=== PATIENT | female | born 1935 | race Caucasian/White ===

== ENCOUNTER 2017-11-28 15:46 | Observation (INO) | payer MEDICARE ==
[~2017-11-28] VITALS: Ht 165.1 cm; Wt 71.2 kg
[2017-11-28] MEDS ORDERED: ENOXAPARIN INJ 80 MG/0.8 ML SYR SC STA (16:34)
[2017-11-28] MEDS ORDERED: ASPIRIN 81 MG CHEW TAB PO ONE ×2 (16:45→19:15)
--- NOTE | 2017-11-28 18:01 | Diagnostic Imaging Report ---
EXAMINATION: CHEST SINGLE (PORTABLE) INDICATION: \S\Chest pain, look for CHF, enlarge Mediastinum COMPARISON: None FINDINGS: AP view TUBES and LINES: None. LUNGS: Lungs are well inflated. There is perihilar interstitial opacities, consistent with interstitial edema. PLEURA: No pleural effusion or pneumothorax. HEART AND MEDIASTINUM: The cardiomediastinal silhouette is unremarkable. There are atherosclerotic calcifications within the aorta. BONES AND SOFT TISSUES: No acute osseous lesion. Soft tissues are unremarkable. UPPER ABDOMEN: No free air under the diaphragm. IMPRESSION: Early interstitial edema. Signed by: Dr. Diogo Isbell M.D. on 11/28/2017 5:58 PM
[2017-11-28 18:27] LABS: BASOPHILS # (AUTO) 0.1 (0.0-0.1); BASOPHILS % 0.9 % (0.0-1.0); EOSINOPHILS # (AUTO) 0.1 (0.0-0.4); EOSINOPHILS % 1.3 % (0.0-6.0); HEMATOCRIT 41.6 % (34.2-44.1); HEMOGLOBIN 13.5 g/dL (12.0-16.0); LYMPHOCYTES # (AUTO) 2.8 (1.0-3.2); MEAN CORPUSCULAR HEMOGLOBIN 30.3 pg (28-32); MEAN CORPUSCULAR HGB CONC 32.5 g/dL (31-35); MEAN CORPUSCULAR VOLUME 93.3 fL (81-99); MONOCYTES # (AUTO) 0.8 (0.2-0.8); MONOCYTES % 7.6 % (4.4-11.3); NEUTROPHILS # (AUTO) 6.7 (2.1-6.9); NEUTROPHILS % 63.7 % (38.7-80.0); PLATELET COUNT 257 x10e3/uL (140-360); RED BLOOD COUNT 4.46 x10e6/uL (3.6-5.1); RED CELL DISTRIBUTION WIDTH 13.5 % (11.7-14.4)
[2017-11-28 18:53] LABS: ALANINE AMINOTRANSFERASE 15 IU/L (0-55); ALBUMIN 3.8 g/dL (3.5-5.0); ALBUMIN/GLOBULIN RATIO 1.1 (0.8-2.0); ALKALINE PHOSPHATASE 68 IU/L (40-150); ANION GAP 17.3 mmol/L (8-16); BLOOD UREA NITROGEN 15 mg/dL (7-26); BUN/CREATININE RATIO 19 (6-25); CARBON DIOXIDE 24 mmol/L (22-29); CHLORIDE 105 mmol/L (98-107); CREATINE KINASE 102 IU/L (29-168); CREATININE, SERUM 0.78 mg/dL (0.57-1.11); EST GLOMERULAR FILTRATION RATE > 60 ML/MIN (60-); GLUCOSE 69 mg/dL (74-118); POTASSIUM 4.3 mmol/L (3.5-5.1); SODIUM 142 mmol/L (136-145)
[2017-11-28] MEDS: METOPROLOL TARTRATE INJ 1 MG/ML VIAL IV SCH (18:56)
[2017-11-28 19:04] LABS: CLARITY,URINE CLEAR (CLEAR); COLOR,URINE YELLOW (YELLOW)
[2017-11-28 19:05] LABS: BILIRUBIN,URINE NEGATIVE (NEGATIVE); KETONES,URINE TRACE (NEGATIVE); LEUKOCYTE ESTERASE ,URINE NEGATIVE (NEGATIVE); NITRITE,URINE NEGATIVE (NEGATIVE); PROTEIN,URINE DIPSTICK NEGATIVE (NEGATIVE); URINE UROBILINOGEN 0.2 mg/dL (0.2 - 1)
[2017-11-28 19:09] LABS: FREE THYROXINE INDEX 2.437 (1.4-3.8); THYROID STIMULATING HORMONE 1.64 uIU/mL (0.350-4.940)
[2017-11-28 19:11] LABS: BACTERIA,URINE FEW /HPF; CALCIUM OXALATE CRYSTALS,UR RARE (FEW); EPITHELIAL CELLS,URINE RARE /LPF
[2017-11-28] MEDS ORDERED: METOPROLOL TARTRATE 25 MG TAB PO STA (19:15)
[2017-11-28] MEDS ORDERED: DILTIAZEM HCL 5 MG/ML 5 ML VIAL IV STA (19:15)
[2017-11-28] MEDS ORDERED: ONDANSETRON HCL INJ 2 MG/ML VIAL IV PRN (19:15)
[2017-11-28] MEDS: FAMOTIDINE 20 MG TAB PO SCH (21:00)
[2017-11-28] MEDS ORDERED: LEVOTHYROXINE50 MCG PO (21:34)
[2017-11-28] MEDS ORDERED: ATENOLOL50 MG PO (21:34)
[2017-11-28] MEDS ORDERED: VITAMIN D32000 UNI1 PO (21:34)
[2017-11-28] MEDS ORDERED: MULTIVITAMINS1 EAC7 PO (21:34)
[2017-11-28] MEDS ORDERED: NOVOLIN N100 UNIT/1 (21:34)
[2017-11-28] MEDS ORDERED: ASPIR 8181 MG PO (21:34)
[2017-11-28] MEDS ORDERED: OMEGA 3 FISH O1 EACH PO (21:34)
[2017-11-28] MEDS ORDERED: QUINAPRIL HCL20 MG PO (21:34)
[2017-11-28] MEDS ORDERED: METFORMIN HCL500 MG PO (21:34)
[2017-11-28] MEDS ORDERED: AMLODIPINE BESYL5 MG PO (21:34)
[2017-11-28] MEDS ORDERED: GARLIC100 MG PO (21:34)
[2017-11-28] MEDS ORDERED: NAPROXEN250 MG PO (21:34)
[2017-11-28] MEDS ORDERED: SLEEP AID25 M1 PO (21:34)
[2017-11-28] MEDS ORDERED: LOVASTATIN40 MG PO (21:34)
[2017-11-28 22:00] VITALS: BP 160/80
[2017-11-28 22:08] VITALS: BP 160/80
[2017-11-28 22:40] VITALS: BP 160/80
[2017-11-29] VITALS (8 sets, daily range): BP systolic 145–191; BP diastolic 71–93
[2017-11-29 02:11] LABS: CREATINE KINASE 108 IU/L (29-168)
[2017-11-29 05:54] LABS: ANION GAP 15.1 mmol/L (8-16); BLOOD UREA NITROGEN 15 mg/dL (7-26); BUN/CREATININE RATIO 21 (6-25); CALCIUM 9.6 mg/dL (8.4-10.2); CARBON DIOXIDE 24 mmol/L (22-29); CHLORIDE 105 mmol/L (98-107); CHOL/HDL RATIO 3.2 (3.0-3.6); CHOLESTEROL 139 MD/DL (0-199); CREATININE, SERUM 0.71 mg/dL (0.57-1.11); EST GLOMERULAR FILTRATION RATE > 60 ML/MIN (60-); GLUCOSE 96 mg/dL (74-118); HDL CHOLESTEROL 44 MG/DL (40-60); LDL CHOLESTEROL 82 MG/DL (60-130); MAGNESIUM 1.9 MG/DL (1.3-2.1); POTASSIUM 4.1 mmol/L (3.5-5.1); SODIUM 140 mmol/L (136-145); TRIGLYCERIDES 66 MG/DL (0-149)
[2017-11-29] MEDS: METOPROLOL TARTRATE INJ 1 MG/ML VIAL IV SCH (05:59)
[2017-11-29] MEDS: FAMOTIDINE 20 MG TAB PO SCH (08:45)
[2017-11-29] MEDS: LISINOPRIL 10 MG TAB PO SCH (10:30)
[2017-11-29 10:39] LABS: CREATINE KINASE 134 IU/L (29-168)
[2017-11-29 11:51] LABS: FREE THYROXINE INDEX 2.2784 (1.4-3.8); THYROID STIMULATING HORMONE 2.001 uIU/mL (0.350-4.940)
[2017-11-29] MEDS ORDERED: DEXTROSE 50% SYRINGE 50 ML IV PRN (12:15)
--- NOTE | 2017-11-29 12:18 | Cardiology Report ---
DATE OF STUDY: November 29, 2017 ECHOCARDIOGRAM ATTENDING PHYSICIAN: Dr. Heaven Stock. An 82-year-old female. M-MODE: Dilated left atrium. Left ventricular hypertrophy. Normal contractility. Aortic sclerosis. Sclerosis of the mitral valve annulus. Normal tricuspid valve. No pericardial effusion. SECTOR SCAN: Dilated left atrium measuring 6.6 x 3.2 cm. Left ventricular hypertrophy. Normal contractility. Ejection fraction is approximately 60%. Aortic valve sclerotic. Mitral annulus sclerotic. Normal tricuspid valve. No pericardial effusion. CARDIAC DOPPLER STUDY WITH COLOR: 1+ mitral and tricuspid regurgitation. CONCLUSIONS: 1. Mild mitral regurgitation with sclerosis of the mitral valve annulus with dilated left atrium measuring 6.6 x 3.2 cm. 2. Mild tricuspid regurgitation without significant pulmonary hypertension. The right atrial size is borderline enlarged. 3. Aortic sclerosis without stenosis. 4. Moderate concentric left ventricular hypertrophy with ejection fraction of approximately 60%. Job#: [id number] EV cc:HEAVEN STOCK M.D. [facility]
[2017-11-29] MEDS: METOPROLOL TARTRATE 50 MG TAB PO SCH ×2 (12:40→21:11)
[2017-11-29] MEDS: INSULIN LISPRO 100 UNIT/1 ML 3ML VIAL SQ SCH ×2 (16:30→21:12)
[2017-11-29] MEDS ORDERED: RIVAROXABAN 20 MG TABLET PO SCH (17:00)
[2017-11-29] MEDS: METFORMIN HCL 500 MG TAB PO SCH (18:20)
[2017-11-29] MEDS ORDERED: SIMVASTATIN 80 MG TAB PO SCH (21:00)
[2017-11-30] VITALS: BP 145/76
[2017-11-30 04:00] VITALS: BP 155/81
[2017-11-30 05:49] LABS: INR 1.92; PROTHROMBIN TIME 23.5 seconds (11.9-14.5)
[2017-11-30] MEDS ORDERED: LEVOTHYROXINE SODIUM 50 MCG TAB PO SCH (06:00)
--- NOTE | 2017-11-30 07:14 | Consultation ---
DATE OF CONSULTATION: CARDIOLOGY CONSULTATION NOTE CLINICAL HISTORY: This is an 82-year-old white woman, a patient of [facility], admitted via the emergency room because of chronic atrial fibrillation. According to the patient, she was never told that she had atrial fibrillation, but she has seen a programmer developer at [facility] approximately 2 months ago. There was some personal conflict and she did not want to go back. The other available programmer developer at [facility] does not have any appointment slots for 2 months. She went to see her primary care physician at [facility] yesterday and they were concerned about her heart and referred her to the emergency room here at [facility] whereupon she was admitted with atrial fibrillation. Ventricular rate appears to be under control. She did not take any anticoagulants. MEDICATIONS AT HOME: Include amlodipine 5 mg p.o. daily, aspirin 81 mg daily, atenolol 100 mg daily, levothyroxine 50 mcg daily, lovastatin 80 mg daily, metformin 500 mg b.i.d., multivitamins, naproxen 250 mg b.i.d., insulin, omega-3 and quinapril 40 mg p.o. nightly. PAST MEDICAL HISTORY: Remarkable for diabetes, hypertension, hypothyroidism. PERSONAL / SOCIAL HISTORY: She denies smoking, drinking. 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 Lives with a son. REVIEW OF SYSTEMS: She denies any chest pains. No syncope or near syncope. FAMILY HISTORY: Father is unknown. Mother from old age. Sister had cancer. Brother from old age. PHYSICAL EXAMINATION GENERAL: She is alert, coherent, appears to be comfortable. CARDIAC: Jugular veins are not distended. S1, S2 were irregularly irregular with variable intensity of S1. LUNGS: Clear. ABDOMEN: Soft. Bowel sounds are present. EXTREMITIES: Showed no cyanosis, clubbing, or edema. IMPRESSIONS 1. Atrial fibrillation, presumably chronic, with the patient not taking any anticoagulants, without any syncope or near syncope and with relatively well controlled ventricular rate. 2. Diabetes. 3. Hypertension. 4. Hypothyroidism. RECOMMENDATION: Review echocardiogram. Anticoagulation. Most likely, this patient will have to return back to see a programmer developer in the [facility] system. Thank you very much. Job#: [id number] TA cc:DEVAN STOCK M.D.
[2017-11-30] MEDS: INSULIN LISPRO 100 UNIT/1 ML 3ML VIAL SQ SCH (07:30)
[2017-11-30 08:34] VITALS: BP 162/72
[2017-11-30] MEDS ORDERED: SIMVASTATIN 20 MG TAB PO SCH (09:00)
[2017-11-30 09:10] VITALS: BP 162/72
[2017-11-30] MEDS: METFORMIN HCL 500 MG TAB PO SCH (09:10)
[2017-11-30] MEDS: LISINOPRIL 10 MG TAB PO SCH (09:10)
[2017-11-30] MEDS: METOPROLOL TARTRATE 50 MG TAB PO SCH (09:10)
[2017-11-30] MEDS ORDERED: METOPROLOL TART50 MG PO (12:09)
[2017-11-30] MEDS ORDERED: XARELTO20 MG PO (12:10)
--- NOTE | 2017-11-30 12:27 | Discharge Summary ---
PRIMARY CARE DOCTOR: Dr. Elva Griffin with [facility]. FINAL DIAGNOSIS: Atrial fibrillation with rapid ventricular response. SECONDARY DIAGNOSES 1. Diabetes. 2. Hypothyroidism. CONSULTANTS: Dr. Arthur, cardiology. PROCEDURES/STUDIES PERFORMED: Echocardiogram. HISTORY: Per H\T\P. HOSPITAL COURSE: Patient came in with AFib with RVR. Her rate was as high as 117. Patient was evaluated by Cardiology. Her atenolol was switched to metoprolol for better rate control. Currently patient's rate is controlled. Patient was also started on Xarelto 20 mg daily. I have updated her primary care doctor about this hospitalization. Her EF appears to be normal on the preliminary echocardiogram result. Her TSH is normal. Therefore, will continue her levothyroxine at the current dosage. Patient received Xarelto for DVT prophylaxis while here. Patient was seen and examined today. CONDITION ON DISCHARGE: Stable. DISCHARGE MEDICATIONS: Please see medication reconciliation form. DEVAN STOCK M.D. Job#: [id number] EV cc:ELVA GRIFFIN MD
== END 2017-11-30 13:33 | disposition home or self-care (01) ==
LOC: ER 15:46 → ERHOLD 19:39 → INTOOBSV 19:39 → MED/SURG 21:53
PROVIDERS: ADMIT Internal Medicine; ATTEND Internal Medicine
DX: I48.2 Chronic atrial fibrillation (principal); E11.9 Type 2 diabetes mellitus without complications; E03.9 Hypothyroidism, unspecified; Z79.84 Long term (current) use of oral hypoglycemic drugs; I08.1 Rheumatic disorders of both mitral and tricuspid valves; I10 Essential (primary) hypertension
CPT/HCPCS: 36415 ×2; 71045; 80048; 80053; 80061; 81001; 82550 ×2; 82553 ×2; 82948 ×3; 83735; 83880; 84436 ×2; 84443 ×2; 84479 ×2; 84484 ×2; 85025; 85610; 87086; 93005; 93306; 99284; G0378 ×3; J1650